=== PATIENT | female | born 1930 | race Caucasian/White ===

== ENCOUNTER 2017-01-31 20:58 | Emergency (ER) | payer MEDICARE, BC ==
[~2017-01-31 20:58] MED LIST: ASCORBIC ACID500 MG PO; CALTRATE-600 W600 MG PO; CARBIDOPA-LEVO1 EAC5 PO; CATAPRES-DPS0.1 MG PO; DETROL LA DPS4 MG PO; ELIQUIS2.5 MG PO; HYDROCODONE 7.7.5 MG PO; KEFLEX-DPS500 MG PO; MAALOX DPS30 ML PO; MILK OF MAGNESI10 ML PO; PREDNISOLONE 1% OU; PRESERVISION A1 EAC2 PO; PRILOSEC DPS20 MG PO; PROTONIX40 MG PO; SENOKOT S1 TAB PO; SURFAK240 MG PO; SYNTHROID25 MCG PO; TEARS NATURAL D15 ML OU; THERA1 EACH PO; THERAPEUTIC MUL1 TA1 PO; TOPROL XL DPS50 MG PO; TYLENOL DPS325 MG PO; TYLENOL EXTRA500 M1 PO; ULTRAM DPS50 MG PO; ZESTRIL DPS40 MG PO
--- NOTE | 2017-02-06 02:33 | ER ---
ADMIT: 01/31/2017 RM/LOC: [facility] MR#: [id number] [address] LAKHWINDER BAXTERANNSarah [place], [place] [id number] Emergency Room Report SEX: F AGE: 86 : 1930 DATE: 01/31/2017 HISTORY OF PRESENT ILLNESS: The patient is a [facility] patient, who is brought in by ambulance for evaluation of a possible urinary tract infection. She has had dysuria, had been treated with multiple antibiotics and is on phenazopyridine at this time. The reason she comes in today is because she is complaining of low back pain and is having more urinary frequency than normal. PAST MEDICAL HISTORY: Includes cardiac disease with AFib, hypertension, UTIs. PAST SURGICAL HISTORY: She has had a [employer]NA[employer] shunt, hip surgery, had a tonsillectomy. MEDICATIONS: Her medications among others include Eliquis. ALLERGIES: SHE IS ALLERGIC TO SULFA, MORPHINE, DURICEF, AND CEPHALOSPORIN. PHYSICAL EXAMINATION: GENERAL: Upon examination, she is well-nourished and well-developed female, afebrile, alert and oriented, very cooperative with the physical examination and questioning. ABDOMEN: She is nontender on abdomen palpation. BACK: CVA bilaterally tenderness. SKIN: Good color. EXTREMITIES: Nontender. NEURO: Oriented x4. Mood and affect are appropriate. Son is at bedside. LABORATORY DATA: WBC's 10.4, are normal; hemoglobin is 11.8; hematocrit is 34.5; sodium is 131 with a BUN of 25; glucose 135 with a calcium of 8.3. Her AST is 85. Her urine is totally normal. There are no signs of infection. ADMIT: 01/31/2017 RM/LOC: [facility] MR#: [id number] [address] ELI[place] [address] Emergency Room Report SEX: F AGE: 86 : 1930 CLINICAL IMPRESSION: 1. History of cystitis. 2. Lumbar pain or lumbosacral strain. 3. Urinary frequency. Instructions sent to Julio Scruggs for the patient's care. Recommendation to stop phenazopyridine as she is not having UTI, no dysuria. It is recommended to be used for only 2 days rather than 10. Contact Dr. Carbajal for further instructions on that. Continue home meds. Labs were done and [facility] were sent to jail [facility], so they can evaluate further. The patient was given a very low dose of Flexeril for her back to try to help relax the muscles. MIKEY Mazariegos / Adrian Bennett MD / [facility] JOB #: [id number] CC: Adrian Bennett MD, Attending Physician Valencia Carbajal MD, Family Physician
== END 2017-01-31 23:40 | disposition home or self-care (01) ==
LOC: ER 20:58
DX: S39.012A Strain of muscle, fascia and tendon of lower back, initial encounter (principal); I10 Essential (primary) hypertension; Z88.2 Allergy status to sulfonamides; Z88.5 Allergy status to narcotic agent; Z88.1 Allergy status to other antibiotic agents; X58.XXXA Exposure to other specified factors, initial encounter